=== PATIENT | female | born 1980 | race Hispanic/Latino ===

== ENCOUNTER 2021-04-08 06:49 | Inpatient (IN) | payer BC, OTHER ==
[~2021-04-08] VITALS: Ht 152.4 cm; Wt 105.0 kg
[2021-04-08 17:05] LABS: BASOPHILS % (AUTO) 0.6 % (0.0-5.0); EOSINOPHILS % (AUTO) 1.8 % (0.0-8.0); HEMATOCRIT 30.5 % (36-48); LYMPHOCYTES % (AUTO) 36.7 % (21.0-51.0); MEAN CORPUSCULAR HEMOGLOBIN 21.1 pg (27.0-33.0); MEAN CORPUSCULAR HGB CONC 29.2 g/dL (32.0-36.0); MEAN CORPUSCULAR VOLUME 72.4 fL (79-99); MONOCYTES % (AUTO) 10.1 % (3.0-13.0); NEUTROPHILS % (AUTO) 50.3 % (40.0-77.0); PLATELET COUNT (AUTO) 382 K/uL (130-400); RED BLOOD CELL COUNT(AUTO) 4.21 MIL/uL (4.00-5.50); WHITE BLOOD COUNT (AUTO) 6.6 K/uL (4.8-10.8)
[2021-04-10] MEDS: CEFAZOLIN SODIUM 1 GM VIAL IVP SCH (10:15)
[2021-04-10] MEDS ORDERED: CALDOLOR 800MG+NS 250ML 250 ML IV SCH (10:15)
[2021-04-10 16:34] VITALS: BP 125/76
[2021-04-10] MEDS ORDERED: iron PO (16:37)
[2021-04-11] VITALS (24 sets, daily range): BP systolic 110–148; BP diastolic 58–82
[2021-04-11] MEDS ORDERED: LACTATED RINGERS 1000ML 1,000 ML IV ONE (06:59)
[2021-04-11] MEDS ORDERED: DEXAMETHASONE SOD PHOSPHATE 10MG/ML 1ML VIAL ONE (07:54)
[2021-04-11] MEDS ORDERED: ONDANSETRON 4MG INJ ONE (07:54)
[2021-04-11] MEDS ORDERED: MIDAZOLAM HCL 1 MG/ML 2ML VIAL ONE (07:54)
[2021-04-11] MEDS ORDERED: SUCCINYLCHOLINE CHLORIDE 20 MG/ML 10 ML VIAL ONE (07:54)
[2021-04-11] MEDS ORDERED: LIDOCAINE PF 100MG/5ML (2%) SYRINGE 5ML ONE (07:54)
[2021-04-11] MEDS ORDERED: GLYCOPYRROLATE 1 MG/5 ML SYRINGE ONE (07:54)
[2021-04-11] MEDS ORDERED: PROPOFOL 10 MG/ML 20ML VIAL IV ONE (07:54)
[2021-04-11] MEDS ORDERED: FENTANYL CITRATE PF 50 MCG/1 ML 2ML VIAL ONE (07:55)
[2021-04-11] MEDS ORDERED: NEOSTIGMINE 5MG/5ML SYR IV ONE (07:55)
[2021-04-11] MEDS ORDERED: ROCURONIUM 10MG/1ML SYR 10 MG/ML ML ONE ×2 (07:55→08:33)
[2021-04-11] MEDS: CEFAZOLIN SODIUM 1 GM VIAL IVP SCH (08:09)
[2021-04-11] MEDS ORDERED: MEPERIDINE-PF 25 MG/ML SYG ONE ×4 (09:09→10:12)
[2021-04-11] MEDS ORDERED: DOCUSATE SODIUM 100 MG CAP PO PRN ×2 (09:45)
[2021-04-11] MEDS ORDERED: IBUPROFEN 800 MG TAB PO PRN (09:45)
[2021-04-11] MEDS ORDERED: SIMETHICONE 80 MG TAB.CHEW PO PRN ×2 (09:45)
[2021-04-11] MEDS ORDERED: PROMETHAZINE HCL 25 MG/ML 1ML AMPULE IM PRN ×3 (09:45→10:45)
[2021-04-11] MEDS ORDERED: ACETAMINOPHEN WITH CODEINE 1 TAB TAB PO PRN ×2 (09:45)
[2021-04-11] MEDS ORDERED: BISACODYL 10 MG SUPP.RECT RC PRN ×2 (09:45)
[2021-04-11] MEDS ORDERED: MEPERIDINE-PF 75 MG/ML SYG IM PRN (09:45)
[2021-04-11] MEDS ORDERED: HYDROCODONE/ACETAMINOPHEN 5/325 MG TAB PO PRN (09:45)
[2021-04-11] MEDS ORDERED: ONDANSETRON 4MG INJ IVP PRN (09:45)
[2021-04-11] MEDS: DEXTROSE 5 %-0.45 % NACL 1,000 ML IV PRN ×2 (10:58→18:53)
[2021-04-11] MEDS: PROMETHAZINE HCL 25 MG/ML 1ML AMPULE IM PRN ×2 (13:01→17:06)
[2021-04-11] MEDS: MEPERIDINE-PF 75 MG/ML SYG IM PRN ×2 (13:01→17:05)
[2021-04-11] MEDS: CALDOLOR 800MG+NS 250ML 250 ML IVPB SCH (18:23)
[2021-04-12] MEDS: CALDOLOR 800MG+NS 250ML 250 ML IVPB SCH (02:13)
[2021-04-12] MEDS: PROMETHAZINE HCL 25 MG/ML 1ML AMPULE IM PRN (02:55)
[2021-04-12] MEDS: MEPERIDINE-PF 75 MG/ML SYG IM PRN (03:01)
[2021-04-12 03:16] VITALS: BP 123/72
[2021-04-12 06:38] LABS: HEMATOCRIT 25.8 % (36-48); MEAN CORPUSCULAR HEMOGLOBIN 21.4 pg (27.0-33.0); MEAN CORPUSCULAR HGB CONC 29.5 g/dL (32.0-36.0); MEAN CORPUSCULAR VOLUME 72.7 fL (79-99); RED BLOOD CELL COUNT(AUTO) 3.55 MIL/uL (4.00-5.50); RED CELL DISTRIBUTION WIDTH 17.1 % (11.0-15.5); WHITE BLOOD COUNT (AUTO) 10.3 K/uL (4.8-10.8)
[2021-04-12] MEDS: DEXTROSE 5 %-0.45 % NACL 1,000 ML IV PRN (06:56)
[2021-04-12 07:24] VITALS: BP 126/78
[2021-04-12] MEDS ORDERED: IBUPROFEN 800 MG TAB PO SCH (09:45)
[2021-04-12] MEDS: CEFAZOLIN SODIUM 1 GM VIAL IVP SCH (10:15)
[2021-04-12 11:13] VITALS: BP 99/64
== END 2021-04-12 14:35 | disposition home or self-care (01) | DRG 742 ==
LOC: EDSTATUS 10:00 → DAHIP 04-11 06:47 → WSH 04-11 11:00
PROVIDERS: ADMIT Obstetrics & Gynecology; ATTEND Obstetrics & Gynecology
PROC: 0TNB0ZZ Release Bladder, Open Approach (ICD-10-PCS; 2021-04-11)
PROC: 0UT90ZZ Resection of Uterus, Open Approach (ICD-10-PCS; principal; 2021-04-11 08:02)
PROC: 0UB70ZZ Excision of Bilateral Fallopian Tubes, Open Approach (ICD-10-PCS; 2021-04-11 08:02)
DX: N92.1 Excessive and frequent menstruation with irregular cycle (principal); Z68.42 Body mass index [BMI] 45.0-49.9, adult; Z20.822 Contact with and (suspected) exposure to COVID-19; E66.9 Obesity, unspecified; D50.9 Iron deficiency anemia, unspecified; K66.0 Peritoneal adhesions (postprocedural) (postinfection); Z98.891 History of uterine scar from previous surgery
CPT/HCPCS: 36415; 84703; 85025; 85027; 86850; 86900; 86901; 87635; A4344; G0378; J0330; J0690; J1100; J1741; J2001; J2175; J2250; J2405; J2550; J2704; J2710; J3010; J3490; J7030; J7120